=== PATIENT | female | born 1960 | race Caucasian/White ===

== ENCOUNTER → 2018-05-12 19:23 | Outpatient (CLI) | payer MEDICAID, SELFPAY | PROVIDERS: PCP Nurse Practitioner Family; Visit Provider Nurse Practitioner Family | DX: G47.33 Obstructive sleep apnea (adult) (pediatric) (principal) | CPT/HCPCS: 95810 ==

== ENCOUNTER → 2018-09-16 13:49 | Outpatient (CLI) | payer MEDICAID, SELFPAY ==
--- NOTE | 2018-09-16 13:50 | CT_ITS ---
CT sinus wo con CLINICAL INDICATION: Sinusitis, deviated septum ITS.REASON: sinusitis ORDERING PHYSICIAN: Cleve Kimble MD PATIENT AGE: 58 years COMPARISON: None TECHNIQUE:Axial images obtained with sagittal and coronal reformats. All CT scans at the facility use one or more dose reduction, viz: automated exposure control, ma/kV adjustment per patient size (including targeted exams where dose is matched to indication, i.e. head), or iterative reconstruction technique. FINDINGS: Frontal sinuses are unremarkable. There is opacification of a mid ethmoid air cell on the right with the remaining ethmoid sinuses have an unremarkable appearance. The right maxillary and sphenoid sinuses also have an unremarkable appearance. The ostiomeatal complexes are patent. There is mild mucosal thickening along the floor of the left maxillary sinus. No sinus air-fluid level. There is mild rightward nasal septal deviation. The mastoid sinuses are well pneumatized with no fluid collection. The middle ears are aerated. The orbits have an unremarkable appearance. TMJs are unremarkable. IMPRESSION: 1. Mild right ethmoid and left maxillary sinus disease. 2. Mild rightward nasal septal deviation
== END ==
PROVIDERS: PCP Nurse Practitioner Family; Visit Provider Otolaryngology
DX: J32.0 Chronic maxillary sinusitis (principal); J32.2 Chronic ethmoidal sinusitis; J34.2 Deviated nasal septum
CPT/HCPCS: 70486

== ENCOUNTER → 2019-03-23 14:35 | Outpatient (CLI) | payer MEDICAID, SELFPAY ==
[2019-03-23 15:14] LABS: Basophils % 0.6 % (0.1-2.0); Eosinophils # 0.1 K/mm3 (0.0-0.4); Eosinophils % 1.8 % (0.1-12.0); Hematocrit 43.5 % (37.0-47.0); Hemoglobin 14.3 g/dL (12.2-16.2); Lymphocytes # 1.3 K/mm3 (0.7-4.5); Lymphocytes % 20.4 % (10-50); Mean Corpuscular HGB Conc 32.8 g/dL (31.8-35.4); Mean Corpuscular Hemoglobin 28.7 pg (27.0-31.2); Mean Corpuscular Volume 87.4 fl (81-99); Mean Platelet Volume 9.2 fl (7.4-10.4); Monocytes # 0.3 K/mm3 (0.1-1.0); Monocytes % 5.1 % (1.7-9.3); Neutrophils # 4.6 K/mm3 (1.8-7.8); Neutrophils % 72.1 % (37.0-80.0); Platelet Count 209 K/mm3 (142-424); Red Blood Count 4.98 M/mm3 (4.20-5.40); Red Cell Distribution Width 13.6 % (11.5-17.5); White Blood Count 6.4 K/mm3 (4.8-10.8)
[2019-03-23 16:35] LABS: Alanine Aminotransferase 41 U/L (12-78); Albumin Level 4.2 gm/dL (3.4-5.0); Albumin/Globulin Ratio 1.1 (1.1-1.8); Alkaline Phosphatase 98 U/L (46-116); Aspartate Amino Transferase 32 U/L (15-37); Bilirubin,Total 0.4 mg/dL (0.2-1.0); Blood Urea Nitrogen 16 mg/dL (7-18); Calcium 9.8 mg/dL (8.5-10.1); Carbon Dioxide 27 mmol/L (21.0-32.0); Chloride 98 mmol/L (98-107); Chol/HDL Ratio 3.9 (1-3.5); Cholesterol 210 mg/dL (140-200); Creatinine,Serum 0.89 mg/dL (0.55-1.02); Estimated Glomerular Filt Rate 65 ml/min (>60); GFR (African American) 79 ML/MIN (>60); Globulin 3.7 gm/dl (1.3-3.2); Glucose 255 mg/dL (74-106); HDL Cholesterol 54 mg/dL (29-89); LDL Cholesterol 108 mg/dL (0-130); Sodium 138 mmol/L (136-145); Thyroid Stimulating Hormone 5.08 uIU/ml (0.358-3.740); Total Protein,Serum 7.9 gm/dL (6.4-8.2); Triglycerides 241 mg/dL (30-200); VLDL Cholesterol 48 mg/dL (0-40)
[2019-03-24 15:38] LABS: Hemoglobin A1C 7.5 % (0.0-7.0)
== END ==
PROVIDERS: Visit Provider Nurse Practitioner Family
DX: E11.9 Type 2 diabetes mellitus without complications (principal); E03.9 Hypothyroidism, unspecified; I49.9 Cardiac arrhythmia, unspecified; Z79.84 Long term (current) use of oral hypoglycemic drugs
CPT/HCPCS: 36415; 80053; 80061; 83036; 84439; 84443; 85025

== ENCOUNTER → 2020-10-02 14:12 | Outpatient (CLI) | payer OTHER, SELFPAY ==
--- NOTE | 2020-10-02 14:17 | XR_ITS ---
PROCEDURE: XR FOOT WT BEARING RT 3V CLINICAL INDICATION: pain COMPARISON: No exams were available for comparison FINDINGS: No fracture or dislocation. No lytic or blastic change. There is normal mineralization. The joint spaces are well-preserved. No significant degenerative/arthritic changes. No erosive changes evident. Small calcaneal spur and Achilles tendon enthesopathy is noted. Other findings:None. IMPRESSION: No acute findings. Dictated by: Charlene Schreiber 10/02/2020 15:42 Charlene Schreiber in [facility] 10/02/2020 15:42
--- NOTE | 2020-10-02 14:17 | XR_ITS ---
PROCEDURE: XR FOOT WT BEARING LT 3V CLINICAL INDICATION: pain COMPARISON: No exams were available for comparison FINDINGS: No fracture or dislocation. No lytic or blastic change. There is normal mineralization. The joint spaces are well-preserved. No significant degenerative/arthritic changes. No erosive changes evident. Other findings:Small calcaneal spur and Achilles tendon enthesopathy is noted. IMPRESSION: No acute findings. Dictated by: Charlene Schreiber 10/03/2020 12:39 Charlene Schreiber in [facility] 10/03/2020 12:39
== END ==
PROVIDERS: PCP Nurse Practitioner Family; Visit Provider Nurse Practitioner Family
DX: R06.00 Dyspnea, unspecified (principal); R00.2 Palpitations; R07.89 Other chest pain; E78.5 Hyperlipidemia, unspecified; I10 Essential (primary) hypertension; M79.672 Pain in left foot; M79.671 Pain in right foot
CPT/HCPCS: 73630; 93270

== ENCOUNTER → 2020-10-11 06:08 | Outpatient (CLI) | payer OTHER, SELFPAY ==
--- NOTE | 2020-10-11 06:09 | NM_ITS ---
APPROVED REPORT Exam: Nuclear Stress Test Indication: Chest pain, SOB, Fatigue, HTN, Obesity, DM, High cholesterol, Family history Patient Location: Outpatient Stress Tech: Milady Dane [place] Tech:Samara Flaherty, ARRT, RT (R)(N) Ht: 5 ft 2 in Wt: 261 lbs Bra Size: 44D HR: 71 bpm BP: 125/43 mmHg BSA: 2.14 m2 BMI: 47.7 History: Chest pain, SOB, Fatigue, HTN, Obesity, DM, High cholesterol, Family history Procedure: Patient received a 0.4 mg of intravenous Lexiscan, resting heart rate 71 bpm, resting blood pressure 125/43 mmHg, with Lexiscan maximum heart rate achived was 101 bpm which is % of the maximum predicted heart rate and blood pressure was 150/77 mmHg. With Lexiscan, patient denied any complaint of chest pain. Cardiac Stress and Resting SPECT Images: Cardiac Stress and Resting SPECT images were obtained using technetium 99m Myoview 32.3 mCi stress and 10.35 mCi at rest. Small decrease activity in the anterior lateral region may be due to breast attenuation. No reversible defects. Normal EF 62%. No wall motion abnormality. Conclusion: Small decrease activity in the anterior lateral region may be due to breast attenuation. No reversible defects. Normal EF 62%. No wall motion abnormality. Electronically signed by : Luiz Peres MD 10/11/2020 14:39:20
--- NOTE | 2020-10-11 06:09 | CA_ITS ---
APPROVED REPORT Exam: Pharmacologic Technologist: Milady Vela Ht: 5 ft 2 in Wt: 271 lbs BSA: 2.17 m2 HR: 71 bpm BP: 125/43 mmHg Indications: Chest pain, Shortness of Breath Medical History Medications: Omeprazole,,,,, Metoprolol,,,,, Simvastatin,,,,, Metformin,,,,, Vitamin B12,,,,, Vitamin D3,,,,, HCTZ,,,,, Naproxen,,,,, Albuterol,,,,, LoraTidine,,,,, Fluoxetine,,,,, Cyclobenzaprine,,,,, Stress Test Details Test: LEXISCAN HR Resting HR: 73 bpm Max Heart Rate (APMHR): 160.943023 bpm Max HR Achieved: 101 bpm Target HR (85% APMHR): 136.757258 bpm % of APMHR: 63.13 Recovery HR: 91 bpm BP Resting BP: 125.0/43.0 mmHg Max BP: 150.0/77.0 mmHg Recovery BP: 131.0/68.0 mmHg ECG Resting ECG: Normal sinus rhythm, early repolarization changes, low voltage QRS Clinical Exercise duration: 04:01 min Highest Stage Achieved: Exercise capacity: 1.0 METs Stress ECG Conclusion Symptoms: Shortness of air, malaise, stomach cramps. No chest pain Arrhythmias/Ectopy: Rare PAC ST-T Changes: No significant changes. Conclusion: Unremarkable Lexiscan stress. Myoview images reported separately. Electronically signed by : oCnner Kyle, 10/13/2020 08:34:24
--- NOTE | 2020-10-11 08:05 | HMH.ITSHM ---
Current Home Medications as stated by this patient Melva Camara or maintenance representative. []TRAZODONE SIMVASTATIN POTASSIUM OMEPRAZOLE NAPROXEN METOPROLOL METFORMIN LORATADINE LEVOTHYROXINE HCTZ FLUTICASONE FLUOXETINE EMPAGLIFLOZIN DOCUSATE CYCLOBENZAPRINE VITMAIN B12 VITMAIN D3 ALBUTEROL
== END ==
PROVIDERS: PCP Nurse Practitioner Family; Visit Provider Nurse Practitioner Family
DX: R07.89 Other chest pain (principal); R06.00 Dyspnea, unspecified; R00.2 Palpitations; E78.5 Hyperlipidemia, unspecified; I10 Essential (primary) hypertension
CPT/HCPCS: 78452; 93017; 93306; A9502; J2785; Q9957

== ENCOUNTER → 2020-11-13 11:20 | Outpatient (CLI) | payer OTHER, SELFPAY ==
[2020-11-13 12:02] LABS: Basophils % 0.5 % (0.1-2.0); Eosinophils # 0.3 K/mm3 (0.0-0.4); Eosinophils % 4.1 % (0.1-12.0); Hemoglobin 12.8 g/dL (12.2-16.2); Lymphocytes # 2.2 K/mm3 (0.7-4.5); Lymphocytes % 30.2 % (10-50); Mean Corpuscular HGB Conc 32.9 g/dL (31.8-35.4); Mean Corpuscular Hemoglobin 27.9 pg (27.0-31.2); Mean Corpuscular Volume 84.7 fl (81-99); Mean Platelet Volume 8.9 fl (7.4-10.4); Monocytes # 0.3 K/mm3 (0.1-1.0); Monocytes % 4.1 % (1.7-9.3); Neutrophils # 4.5 K/mm3 (1.8-7.8); Neutrophils % 61.1 % (37.0-80.0); Platelet Count 266 K/mm3 (142-424); Red Cell Distribution Width 13.8 % (11.5-17.5); White Blood Count 7.3 K/mm3 (4.8-10.8)
[2020-11-13 13:14] LABS: Chloride 97 mmol/L (98-107)
[2020-11-13 13:15] LABS: Sodium 137 mmol/L (136-145)
[2020-11-13 13:16] LABS: Coronavirus 19 IgG Antibody Positive (Negative); Coronavirus 19 IgM Antibody Negative (Negative)
[2020-11-13 13:17] LABS: Blood Urea Nitrogen 15 mg/dl (7-17); Estimated Glomerular Filt Rate 73 ml/min (>60); GFR (African American) 89 ML/MIN (>60)
[2020-11-13 13:18] LABS: Calcium 10.2 mg/dl (8.4-10.2); Carbon Dioxide 29 mmol/L (22.0-30.0); Glucose 165 mg/dl (74-100)
== END ==
PROVIDERS: Visit Provider Physician Assistant
DX: Z01.812 Encounter for preprocedural laboratory examination (principal); Z20.822 Contact with and (suspected) exposure to COVID-19; R06.00 Dyspnea, unspecified; I20.9 Angina pectoris, unspecified; R94.30 Abnormal result of cardiovascular function study, unspecified; I10 Essential (primary) hypertension; E78.2 Mixed hyperlipidemia
CPT/HCPCS: 36415; 80048; 85025; 86328

== ENCOUNTER 2020-11-15 08:02 | Day surgery (SDC) | payer OTHER, SELFPAY ==
[2020-11-15] VITALS (12 sets, daily range): BP systolic 90–130; BP diastolic 43–87; PULSE 62–88; RESP 18–20; TEMP 36.7; O2SAT 95–100; BMI 49.9
--- NOTE | 2020-11-15 | IR_ITS ---
APPROVED REPORT Patient Location: Outpatient School Psychometrist: SOURAV Paige RT (R) PROCEDURES Left heart catheterization Left ventriculogram Selective coronary angiogram Drug-eluting stent deployment to the ostial proximal left main artery FFR to the LAD Intravascular ultrasound to the LAD Intravascular ultrasound of left main artery INDICATION Coronary artery disease, High risk abnormal Myoview, Low syntax score , Left main stenting, Angiographically indeterminate LAD disease Informed consent was obtained prior to the procedure. COMPLICATIONS NONE Estimated Blood Loss: LESS THAN 10 ML TECHNIQUE One percent lidocaine used to anesthetize the right anterior aspect of the wrist. The right radial artery was accessed via the Seldinger technique. A 6 [place] sheath was placed in the right radial artery. 2.5 mg of verapamil, 800 mcg of nitroglycerin, 1mg Lidocaine and 5000 U Heparin were given through the arterial sheath. The trap catheter was also used to perform left heart catheterization, left ventriculogram and selective coronary angiogram. At the end of the diagnostic procedure therapeutic heparin was administered giving a therapeutic ACT. Patient is morbidly obese with normal LV function and diabetic. Patient has a low syntax score with an isolated ostial left main stenosis in which data demonstrates these patients do very well with drug-eluting stenting and have significantly lower stroke rate with equal life expectancy to CABG. Based on her morbid obesity it was felt a left main stenting would be in this patient's best interest and should result with superior outcomes as described with lower stroke rate. Given the scenario 4 mm x 8 mm resolute [place] stent was initially deployed at 20 sujatha. A 5 mm x 8 mm balloon was then placed back into the ostial segment and deployed at 20 sujatha. At this point a nevus FFR catheter was advanced into the mid LAD to better evaluate the proximal LAD stenosis to make sure that large 4 mm vessel did not require stenting due to hemodynamic significant lesion. Adenosine was infused and the FFR index dropped to 0.83. At this point an [place] eye intravascular ultrasound probe was advanced to evaluate both the LAD and left main artery. The MLA in the proximal LAD measured 8.3 mm??? and it also demonstrated the left main artery had slight undersizing of the left main stent therefore a 5 mm x 12 mm resolute [place] stent was placed in the ostial proximal segment of the left main artery and deployed at 24 sujatha. This provided double stenting of the ostium for increased radial strength and also provided much better apposition of the stent to the left main artery. Repeat angiography demonstrated suspected spasm of the mid to distal LAD therefore 2 aliquots of 800 mcg of nitroglycerin were administered directly into the left main artery with subsequent angiography demonstrated EWDIGE III flow down the LAD with no angiographic defect from the FFR or IVUS catheters. After achieving excellent angiographic results the apparatus was removed the sheath was removed and hemostasis was achieved using TR banding patient was transferred to the postop holding in stable condition ANGIOGRAPHIC RESULTS The left main artery Has an ostial 70 to 80% stenosis The left anterior descending artery Has a proximal eccentric 30% stenosis with a mid vessel 30% stenosis along a tortuous bend The circumflex artery Nondominant and normal The right coronary artery Is a large dominant vessel with proximal and mid vessel eccentric 30% stenosis The TRUJILLO ventriculogram reveals Normal 65% The left ventricular end-diastolic pressure 20-25 mmHg IMPRESSION Severe ostial left main disease accompanied by low syntax score
[2020-11-15 13:45] LABS: POC Glucose,Bedside 153 (70-110)
[2020-11-15 14:27] LABS: CATHL Activated Clotting Time 308 SEC (74-125)
--- NOTE | 2020-11-15 14:50 | HMH.PHACLD ---
Melva Camara has received discharge medication counseling on the following medications: ASPIRIN 81MG BRILINTA 90MG ATORVASTATIN 40MG LASIX 20MG RAMIPRIL 10MG CARVEDILOL 12.5MG PATIENT IS TO HOLD METFORMIN FOR 2 DAYS AND STOP IMDUR, ZOCOR, NAPROXEN, AND METOPROLOL. PATIENT AND PATIENT'S VERBALIZED UNDERSTANDING AND HAD NO QUESTIONS AT THIS TIME. -CARLO DELUCA, JOSELINED
== END 2020-11-15 14:47 | disposition home or self-care (01) ==
LOC: CATHLAB 08:03
PROVIDERS: PCP Nurse Practitioner Family; Visit Provider Internal Medicine
DX: I25.118 Atherosclerotic heart disease of native coronary artery with other forms of angina pectoris (principal); R94.39 Abnormal result of other cardiovascular function study; Z82.49 Family history of ischemic heart disease and other diseases of the circulatory system; Z79.84 Long term (current) use of oral hypoglycemic drugs; E11.9 Type 2 diabetes mellitus without complications; I10 Essential (primary) hypertension; E78.5 Hyperlipidemia, unspecified; Z79.899 Other long term (current) drug therapy; E66.01 Morbid (severe) obesity due to excess calories; Z68.42 Body mass index [BMI] 45.0-49.9, adult
CPT/HCPCS: 82962; 85347; 92978; 92979; 93458; 93571; 99152; 99153; C1725; C1760; C1769; C1876; J0153; J1644; J2405; Q9967

== ENCOUNTER → 2021-01-01 11:42 | Outpatient (CLI) | payer OTHER, SELFPAY ==
[2021-01-01 12:50] LABS: Chloride 94 mmol/L (98-107); Sodium 137 mmol/L (136-145)
[2021-01-01 12:53] LABS: Blood Urea Nitrogen 17 mg/dl (7-17); Calcium 10.3 mg/dl (8.4-10.2); Carbon Dioxide 29 mmol/L (22.0-30.0); Estimated Glomerular Filt Rate 57 ml/min (>60); GFR (African American) 68 ML/MIN (>60); Glucose 172 mg/dl (74-100)
== END ==
PROVIDERS: Visit Provider Physician Assistant
DX: R42 Dizziness and giddiness (principal); I25.10 Atherosclerotic heart disease of native coronary artery without angina pectoris; I51.89 Other ill-defined heart diseases; E78.2 Mixed hyperlipidemia; I10 Essential (primary) hypertension
CPT/HCPCS: 36415; 80048

== ENCOUNTER → 2021-05-22 12:22 | Outpatient (CLI) | payer OTHER, SELFPAY ==
--- NOTE | 2021-05-22 | US_ITS ---
APPROVED REPORT Exam Type: Ankle to Brachial Index Coffee Sommelier: RT Shun(R) Indications Claudication: Bilaterally Rest Pain: Bilaterally CAD bilateral claudication Risk Factors Hypertension Diabetes Pressures/Indices Right Indices Left Indices Brachial 153.00 mmHg Brachial 145.00 mmHg Low Thigh 168.00 mmHg 1.10 Low Thigh 178.00 mmHg 1.16 Calf 172.00 mmHg 1.12 Calf 174.00 mmHg 1.14 Ankle(PT) 168.00 mmHg 1.10 Ankle(PT) 168.00 mmHg 1.10 Ankle(DP) 146.00 mmHg 0.95 Ankle(DP) 169.00 mmHg 1.10 Digit 119.00 mmHg 0.78 Digit 114.00 mmHg 0.75 Findings RT AI=1.10 LT AI=1.10 RT TBI=0.78 LT TBI=0.75 Normal pulses Normal waveforms Conclusion RT AI=1.10 LT AI=1.10 RT TBI=0.78 LT TBI=0.75 Normal pulses Normal waveforms Normal appearing resting noninvasive lower extremity arterial study. Electronically signed by : Luiz Peres MD 05/23/2021 19:37:38
== END ==
PROVIDERS: PCP Nurse Practitioner Family; Visit Provider Nurse Practitioner Family
DX: R29.898 Other symptoms and signs involving the musculoskeletal system (principal); L65.9 Nonscarring hair loss, unspecified
CPT/HCPCS: 93923

== ENCOUNTER → 2021-07-11 06:21 | Outpatient (CLI) | payer OTHER, SELFPAY ==
--- NOTE | 2021-07-11 06:23 | CA_ITS ---
APPROVED REPORT Exam: Pharmacologic Technologist: Larissa Zapata, Ht: 5 ft 2 in Wt: 254 lbs BSA: 2.12 m2 HR: 69 bpm BP: 163/77 mmHg Medical History Medications: Omeprazole,,,,, Levothyroxine,,,,, Aspirin,,,,, Flexeril,,,,, Lasix,,,,, Ramipril,,,,, Lipitor,,,,, Coreg,,,,, Albuterol,,,,, MeLOXICAM,,,,, ZYRTEC,,,,, Plavix,,,,, Stress Test Details Test: LEXISCAN HR Resting HR: 67 bpm Max Heart Rate (APMHR): 159 bpm Max HR Achieved: 96 bpm Target HR (85% APMHR): 135 bpm % of APMHR: 60 Recovery HR: 84 bpm BP Resting BP: 163/77 mmHg Max BP: 176/87 mmHg Recovery BP: 166.0/83.0 mmHg ECG Resting ECG: NSR, low voltage QRS, rightward axis Clinical Exercise duration: 04:00 min Highest Stage Achieved: Exercise capacity: 1.0 METs Stress ECG Conclusion Symptoms: Mild SOA, malaise, discomfort in shoulders and posterior neck. Arrhythmias/Ectopy: None. ST-T Changes: No significant changes. Conclusion: Unremarkable Lexiscan stress. Myoview images reported separately. Test Summary REST . . . . . . . Resting REST 04:35 . . 67 . 163/ 77 . . Stage 1 01:00 . . 94 . . . . Stage 2 01:00 . . 92 . 166/ 84 . . Stage 3 01:00 . . 90 . 176/ 87 . . Stage 4 01:00 . . 86 . 163/ 83 . Stop exercise at 04:00 RECOVERY 01:00 . . 84 . 162/ 79 . . RECOVERY 02:00 . . 84 . 162/ 79 . . RECOVERY 03:00 . . 82 . 166/ 83 . . RECOVERY 03:18 . . 81 . 166/ 83 . . Electronically signed by : Silvino Parkinson MD 07/11/2021 11:29:24
--- NOTE | 2021-07-11 06:23 | NM_ITS ---
APPROVED REPORT Exam: Nuclear Stress Test Indication: CAD, HTN, DM, HYPERLIPIDEMIA, FM HX, C.P., SOB, FATIGUE, ABN EKG Patient Location: Outpatient Stress Tech: Larissa Zapata [place] Tech:Caroline Alvarez, ARRT RT (R)(N)(M) Ht: 5 ft 2 in Wt: 254 lbs Bra Size: DD HR: 67 bpm BP: 163/77 mmHg BSA: 2.12 m2 BMI: 46.4 History: CAD, HTN, DM, HYPERLIPIDEMIA, FM HX, C.P., SOB, FATIGUE, ABN EKG Procedure: Patient received a 0.4 mg of intravenous Lexiscan, resting heart rate 67 bpm, resting blood pressure 163/77 mmHg, with Lexiscan maximum heart rate achived was 94 bpm which is Less than 85 % of the maximum predicted heart rate and blood pressure was 166/84 mmHg. With Lexiscan, patient denied any complaint of chest pain. Electrocardiogram Resting electrocardiogram shows sinus rhythm, with Lexiscan there is less than 1.[address] segment depression noted from the baseline EKG. The EKG portion of the Lexiscan is nondiagnostic. Cardiac Stress and Resting SPECT Images: Cardiac Stress and Resting SPECT images were obtained using technetium 99m Myoview 31.4 mCi stress and 10.56 mCi at rest. Gated SPECT for analysis of segmental wall motion and calculation of the ejection fraction also done. Cardiac stress and respiratory show mild fixed defect in the anterior wall with normal contractility gated SPECT is likely secondary to soft tissue attenuation, no reversible ischemia seen, computer derived ejection fraction is 57% with no regional wall motion abnormality, right ventricle is normal size and contractility. However there is transient ischemic dilatation of the left ventricle seen, raising the concerns of presence of balanced ischemia. Conclusion: 1. The EKG portion of the Lexiscan is nondiagnostic. 2. No scintigraphic evidence of reversible ischemia seen, computer derived ejection fraction is 57% with no regional wall motion abnormality, right ventricle is normal size and contractility, there is transient ischemic dilatation of the left ventricle seen, raising the concerns for presence of balanced ischemia, other causes for transient ischemic dilatation include microvascular disease, diabetes, elevated left ventricular end-diastolic pressure and hypertensive heart disease. Clinical correlation is recommended. 3. Abnormal Lexiscan Myoview study. Electronically signed by : Silvino Parkinson MD 07/11/2021 11:37:04
== END ==
PROVIDERS: PCP Nurse Practitioner Family; Visit Provider Urology
DX: R06.00 Dyspnea, unspecified (principal); I25.118 Atherosclerotic heart disease of native coronary artery with other forms of angina pectoris; I20.9 Angina pectoris, unspecified; I10 Essential (primary) hypertension; R94.31 Abnormal electrocardiogram [ECG] [EKG]; E11.9 Type 2 diabetes mellitus without complications; E78.2 Mixed hyperlipidemia; E66.01 Morbid (severe) obesity due to excess calories; Z68.42 Body mass index [BMI] 45.0-49.9, adult; Z79.84 Long term (current) use of oral hypoglycemic drugs
CPT/HCPCS: 78452; 93017; A9502; J2785

== ENCOUNTER → 2021-08-03 11:54 | Outpatient (CLI) | payer OTHER, SELFPAY ==
[2021-08-03 12:53] LABS: Basophils # 0.1 K/mm3 (0-0.2); Basophils % 0.7 % (0.1-2.0); Eosinophils # 0.3 K/mm3 (0.0-0.4); Eosinophils % 4.8 % (0.1-12.0); Hematocrit 39.3 % (37.0-47.0); Hemoglobin 13.1 g/dL (12.2-16.2); Lymphocytes # 2.1 K/mm3 (0.7-4.5); Lymphocytes % 29.9 % (10-50); Mean Corpuscular HGB Conc 33.4 g/dL (31.8-35.4); Mean Corpuscular Hemoglobin 28.4 pg (27.0-31.2); Mean Corpuscular Volume 85.1 fl (81-99); Mean Platelet Volume 9.3 fl (7.4-10.4); Monocytes # 0.3 K/mm3 (0.1-1.0); Monocytes % 4.7 % (1.7-9.3); Neutrophils # 4.3 K/mm3 (1.8-7.8); Neutrophils % 59.9 % (37.0-80.0); Platelet Count 242 K/mm3 (142-424); Red Blood Count 4.61 M/mm3 (4.20-5.40); Red Cell Distribution Width 15.5 % (11.5-17.5); White Blood Count 7.1 K/mm3 (4.8-10.8)
[2021-08-03 13:56] LABS: Chloride 100 mmol/L (98-107); Potassium 4.4 mmoL/L (3.5-5.1); Sodium 138 mmol/L (136-145)
[2021-08-03 13:59] LABS: Anion Gap 16.4 mEq/L (5-15); Blood Urea Nitrogen 17 mg/dl (7-17); Carbon Dioxide 26 mmol/L (22.0-30.0); Estimated Glomerular Filt Rate 73 ml/min (>60); GFR (African American) 88 ML/MIN (>60); Glucose 157 mg/dl (74-100)
== END ==
PROVIDERS: Visit Provider Physician Assistant
DX: Z01.812 Encounter for preprocedural laboratory examination (principal); Z11.52 Encounter for screening for COVID-19; R06.00 Dyspnea, unspecified; I20.8 Other forms of angina pectoris; I25.118 Atherosclerotic heart disease of native coronary artery with other forms of angina pectoris; I10 Essential (primary) hypertension; E11.9 Type 2 diabetes mellitus without complications; E78.2 Mixed hyperlipidemia; R94.31 Abnormal electrocardiogram [ECG] [EKG]; R94.39 Abnormal result of other cardiovascular function study; E66.01 Morbid (severe) obesity due to excess calories; Z68.42 Body mass index [BMI] 45.0-49.9, adult; Z79.84 Long term (current) use of oral hypoglycemic drugs
CPT/HCPCS: 36415; 80048; 85025; C9803; U0003; U0005

== ENCOUNTER 2021-08-06 08:07 | Day surgery (SDC) | payer OTHER, SELFPAY ==
[2021-08-06] VITALS (13 sets, daily range): BP systolic 102–146; BP diastolic 62–87; PULSE 76–92; RESP 13–19; TEMP 36.9; O2SAT 90–94; BMI 45.8
--- NOTE | 2021-08-06 07:07 | IR_ITS ---
APPROVED REPORT Patient Location: Outpatient Financial Analysis Manager: SOURAV Paige RT (R) PROCEDURES Left heart catheterization Left ventriculogram Selective coronary angiogram INDICATION History of unprotected left main artery stenting, Established coronary artery disease, Abnormal stress test, Worsening angina pectoris Informed consent was obtained prior to the procedure. COMPLICATIONS NONE Estimated Blood Loss: LESS THAN 10 ML TECHNIQUE One percent lidocaine used to anesthetize the right anterior aspect of the wrist. The right radial artery was accessed via the Seldinger technique. A 6 [place] sheath was placed in the right radial artery. 2.5 mg of verapamil, 800 mcg of nitroglycerin, 1mg Lidocaine and 5000 U Heparin were given through the arterial sheath. The [place] catheter was also used to perform left heart catheterization, left ventriculogram and selective coronary angiogram. At the end of the procedure the sheath was removed good hemostasis was achieved using Traclet band, patient was transferred to the postop holding area in stable condition. ANGIOGRAPHIC RESULTS The left main artery Has a stent in the ostial segment which extends throughout the majority of the vessel. The stent is widely patent free of in-stent restenosis with excellent proximal distal transitioning. The left anterior descending artery Is widely patent has minimal proximal 20% tandem eccentric stenosis The circumflex artery Nondominant with mild luminal irregularities The right coronary artery Large dominant with a proximal eccentric 20% stenosis mild 10% luminal irregularities in the large posterior descending artery The TRUJILLO ventriculogram reveals Normal 65% The left ventricular end-diastolic pressure 20-25 mmHg IMPRESSION Widely patent ostial proximal left main stent as described above Mild nonflow limiting coronary disease as described above Normal ejection fraction Moderately elevated LVEDP consistent with diastolic dysfunction which is the likely etiology for the transient ischemic dilatation as reported on stress test and associated angina pectoris PLAN 1. Treat diastolic dysfunction which is the likely etiology for the angina 2. Medical management 3. Risk factor modification Electronically signed by : Conner Kyle MD 08/06/2021 13:59:54
== END 2021-08-06 14:19 | disposition home or self-care (01) ==
LOC: CATHLAB 08:08
PROVIDERS: PCP Nurse Practitioner Family; Visit Provider Internal Medicine
DX: I25.118 Atherosclerotic heart disease of native coronary artery with other forms of angina pectoris (principal); E11.9 Type 2 diabetes mellitus without complications; E66.01 Morbid (severe) obesity due to excess calories; E78.2 Mixed hyperlipidemia; I10 Essential (primary) hypertension; R94.31 Abnormal electrocardiogram [ECG] [EKG]; R94.39 Abnormal result of other cardiovascular function study; Z68.42 Body mass index [BMI] 45.0-49.9, adult; Z79.01 Long term (current) use of anticoagulants; E03.9 Hypothyroidism, unspecified; Z79.84 Long term (current) use of oral hypoglycemic drugs
CPT/HCPCS: 93458; 99152; C1725; C1760; C1769; J1644; Q9967

== ENCOUNTER → 2022-04-10 12:27 | Outpatient (CLI) | payer OTHER, SELFPAY ==
[2022-04-10 15:20] LABS: Hemoglobin A1C 6.5 % (4.0-6.0)
[2022-04-10 16:58] LABS: Chloride 95 mmol/L (98-107); Potassium 3.4 mmoL/L (3.5-5.1); Sodium 136 mmol/L (136-145)
[2022-04-10 17:00] LABS: Blood Urea Nitrogen 9 mg/dl (7-17); Estimated Glomerular Filt Rate 85 ml/min (>60); GFR (African American) 103 ML/MIN (>60)
[2022-04-10 17:01] LABS: Alanine Aminotransferase 16 U/L (12-78); Albumin Level 4.3 g/dl (3.5-5.0); Albumin/Globulin Ratio 1.6 (1.1-1.8); Alkaline Phosphatase 89 U/L (38-126); Anion Gap 11.4 mEq/L (5-15); Aspartate Amino Transferase 23 U/L (14-36); Calcium 9.5 mg/dl (8.4-10.2); Carbon Dioxide 33 mmol/L (22.0-30.0); Globulin 2.7 g/dL (1.3-3.2); Glucose 200 mg/dl (74-100)
[2022-04-10 17:23] LABS: Bilirubin,Total 0.1 mg/dl (0.2-1.3)
[2022-04-10 17:28] LABS: Thyroid Stimulating Hormone 2.67 uIU/mL (0.465-4.68)
== END ==
PROVIDERS: PCP Nurse Practitioner Family; Visit Provider Nurse Practitioner Family
DX: E03.9 Hypothyroidism, unspecified (principal); E11.9 Type 2 diabetes mellitus without complications; Z79.84 Long term (current) use of oral hypoglycemic drugs
CPT/HCPCS: 36415; 80053; 83036; 84443

== ENCOUNTER → 2022-04-23 12:25 | Outpatient (CLI) | payer OTHER, SELFPAY ==
--- NOTE | 2022-04-23 12:27 | MR_ITS ---
FINAL REPORT CLINICAL HISTORY: MEMORY LOSS. intermittent lightheadedness. blurred vision, dizziness, and weakness. FINDINGS: Multiplanar MR imaging of the brain was performed without contrast. There is mild age-appropriate atrophy. There are scattered foci of increased T2 signal in the cerebral white matter that have a nonspecific appearance but likely represent mild chronic ischemic/gliotic changes. There is no evidence of intracranial hemorrhage or mass. No abnormal ventricular dilatation is identified. No abnormal extra-axial fluid collection is seen. No abnormality is seen on the diffusion weighted images. The posterior fossa and brainstem are unremarkable. Normal major vessel vascular flow voids are seen. IMPRESSION: Age-appropriate atrophy and mild chronic ischemic/gliotic changes. No acute intracranial abnormality. Reviewed, Interpreted and Dictated by Chandra Hair III, MD Transcribed by Jane Giraldo Authenticated and [facility]
== END ==
PROVIDERS: PCP Nurse Practitioner Family; Visit Provider Nurse Practitioner Family
DX: R41.3 Other amnesia (principal)
CPT/HCPCS: 70551

== ENCOUNTER → 2022-07-10 13:28 | Outpatient (CLI) | payer OTHER, SELFPAY ==
--- NOTE | 2022-07-10 13:33 | MR_ITS ---
FINAL REPORT TECHNIQUE: Multiplanar MR without contrast CLINICAL HISTORY: RIGHT SIDED SCIATICA FINDINGS: Sagittal images show normal vertebral height. Alignment is normal. There is fatty endplate signal change in the inferior endplate of L4. A hemangioma is noted within the left L1 vertebral body. L1-2: Unremarkable L2-3: Unremarkable L3-4: A mild annular disc bulge is present with moderate facet arthropathy and ligamentum flavum hypertrophy. There is mild central canal stenosis. L4-5: A moderate annular disc bulge is present with facet arthropathy and mild central canal stenosis. There is mild bilateral neural foraminal narrowing. L5-S1: Unremarkable IMPRESSION: Degenerative change at L3-4 and L4-5 as described with mild central canal stenosis. Reviewed, Interpreted and Dictated by Derek Valenzuela MD Transcribed by Daphne Galaviz Authenticated and [facility]
== END ==
PROVIDERS: PCP Nurse Practitioner Family; Visit Provider Nurse Practitioner Family
DX: M54.31 Sciatica, right side (principal); M54.41 Lumbago with sciatica, right side
CPT/HCPCS: 72148; 76376

== ENCOUNTER → 2022-09-04 12:01 | Outpatient (CLI) | payer OTHER, SELFPAY ==
[2022-09-04 12:47] LABS: Chloride 96 mmol/L (98-107); Potassium 3.2 mmoL/L (3.5-5.1); Sodium 138 mmol/L (136-145)
[2022-09-04 12:49] LABS: Bilirubin,Unconjugated 0.3 mg/dL (0.0-1.1); Blood Urea Nitrogen 16 mg/dl (7-17); Estimated Glomerular Filt Rate 63 ml/min (>60); GFR (African American) 77 ML/MIN (>60)
[2022-09-04 12:50] LABS: Alanine Aminotransferase 21 U/L (12-78); Albumin Level 4.4 g/dl (3.5-5.0); Alkaline Phosphatase 76 U/L (38-126); Anion Gap 14.2 mEq/L (5-15); Aspartate Amino Transferase 25 U/L (14-36); Bilirubin,Direct 0.3 mg/dl (0.0-0.4); Bilirubin,Indirect 0.4 mg/dL (0.0-0.9); Bilirubin,Total 0.7 mg/dl (0.2-1.3); Calcium 9.3 mg/dl (8.4-10.2); Carbon Dioxide 31 mmol/L (22.0-30.0); Chol/HDL Ratio 3.2 (1-3.5); Cholesterol 175 mg/dl (140-200); Glucose 133 mg/dl (74-100); HDL Cholesterol 55 mg/dl (40-60); Total Protein,Serum 7.5 g/dl (6.3-8.2); Triglycerides 184 mg/dl (30-150); VLDL Cholesterol 37 mg/dL (0-40)
[2022-09-04 12:59] LABS: NT Pro Brain Natriuretic Pep. 50.8 pg/mL (0-125)
[2022-09-04 13:01] LABS: Direct LDL Cholesterol 88.59 mg/dL (100-129)
== END ==
PROVIDERS: PCP Nurse Practitioner Family; Visit Provider Physician Assistant
DX: R06.00 Dyspnea, unspecified (principal); Z79.899 Other long term (current) drug therapy; E78.2 Mixed hyperlipidemia
CPT/HCPCS: 36415; 80048; 80061; 80076; 83880

== ENCOUNTER → 2022-09-19 11:55 | Outpatient (CLI) | payer OTHER, SELFPAY ==
[2022-09-19 13:01] LABS: Anion Gap 11.9 mEq/L (5-15); Blood Urea Nitrogen 9 mg/dl (7-17); Calcium 8.8 mg/dl (8.4-10.2); Carbon Dioxide 33 mmol/L (22.0-30.0); Chloride 95 mmol/L (98-107); Estimated Glomerular Filt Rate 85 ml/min (>60); GFR (African American) 103 ML/MIN (>60); Glucose 138 mg/dl (74-100); Sodium 137 mmol/L (136-145)
[2022-09-19 13:03] LABS: Potassium 2.9 mmoL/L (3.5-5.1)
== END ==
PROVIDERS: PCP Nurse Practitioner Family; Visit Provider Internal Medicine
DX: I25.118 Atherosclerotic heart disease of native coronary artery with other forms of angina pectoris (principal)
CPT/HCPCS: 36415; 80048

== ENCOUNTER → 2022-10-02 10:18 | Outpatient (CLI) | payer OTHER, SELFPAY ==
[2022-10-02 12:11] LABS: Anion Gap 12.7 mEq/L (5-15); Blood Urea Nitrogen 9 mg/dl (7-17); Calcium 8.5 mg/dl (8.4-10.2); Carbon Dioxide 32 mmol/L (22.0-30.0); Chloride 96 mmol/L (98-107); Estimated Glomerular Filt Rate 101 ml/min (>60); GFR (African American) 123 ML/MIN (>60); Glucose 184 mg/dl (74-100); Sodium 138 mmol/L (136-145)
[2022-10-02 12:22] LABS: Potassium 2.7 mmoL/L (3.5-5.1)
== END ==
PROVIDERS: PCP Nurse Practitioner Family; Visit Provider Nurse Practitioner Family
DX: E87.5 Hyperkalemia (principal)
CPT/HCPCS: 36415; 80048

== ENCOUNTER → 2022-10-04 09:50 | Outpatient (CLI) | payer OTHER, SELFPAY ==
[2022-10-04 10:27] LABS: Chloride 97 mmol/L (98-107)
[2022-10-04 10:28] LABS: Sodium 140 mmol/L (136-145)
[2022-10-04 10:31] LABS: Anion Gap 11.9 mEq/L (5-15); Blood Urea Nitrogen 10 mg/dl (7-17); Calcium 9.3 mg/dl (8.4-10.2); Carbon Dioxide 34 mmol/L (22.0-30.0); Estimated Glomerular Filt Rate 85 ml/min (>60); GFR (African American) 103 ML/MIN (>60); Glucose 187 mg/dl (74-100)
[2022-10-04 10:42] LABS: Potassium 2.9 mmoL/L (3.5-5.1)
== END ==
PROVIDERS: PCP Nurse Practitioner Family; Visit Provider Nurse Practitioner Family
DX: E87.6 Hypokalemia (principal)
CPT/HCPCS: 36415; 80048

== ENCOUNTER → 2022-10-07 12:02 | Outpatient (CLI) | payer OTHER, SELFPAY ==
[2022-10-07 13:09] LABS: Anion Gap 15.3 mEq/L (5-15); Blood Urea Nitrogen 8 mg/dl (7-17); Calcium 9.3 mg/dl (8.4-10.2); Carbon Dioxide 30 mmol/L (22.0-30.0); Chloride 96 mmol/L (98-107); Estimated Glomerular Filt Rate 101 ml/min (>60); GFR (African American) 123 ML/MIN (>60); Glucose 137 mg/dl (74-100); Potassium 3.3 mmoL/L (3.5-5.1); Sodium 138 mmol/L (136-145)
== END ==
PROVIDERS: PCP Nurse Practitioner Family; Visit Provider Nurse Practitioner
DX: E87.6 Hypokalemia (principal)
CPT/HCPCS: 36415; 80048

== ENCOUNTER 2023-10-27 14:41 | Outpatient (CLI) | payer OTHER, SELFPAY ==
[2023-10-27 15:00] LABS: Basophils # 0.1 K/mm3 (0-0.2); Basophils % 1.1 % (0.1-2.0); Eosinophils # 0.3 K/mm3 (0.0-0.4); Eosinophils % 4.6 % (0.1-12.0); Hematocrit 40.3 % (37.0-47.0); Hemoglobin 13.1 g/dL (12.2-16.2); Lymphocytes # 2.3 K/mm3 (0.7-4.5); Lymphocytes % 32.3 % (10-50); Mean Corpuscular HGB Conc 32.6 g/dL (31.8-35.4); Mean Corpuscular Hemoglobin 25.8 pg (27.0-31.2); Mean Corpuscular Volume 79.2 fl (81-99); Mean Platelet Volume 9.6 fl (7.4-10.4); Monocytes # 0.3 K/mm3 (0.1-1.0); Monocytes % 4.2 % (1.7-9.3); Neutrophils # 4.2 K/mm3 (1.8-7.8); Neutrophils % 57.8 % (37.0-80.0); Platelet Count 236 K/mm3 (142-424); Red Blood Count 5.09 M/mm3 (4.20-5.40); Red Cell Distribution Width 18.2 % (11.5-17.5); White Blood Count 7.2 K/mm3 (4.8-10.8)
[2023-10-27 16:27] LABS: Alanine Aminotransferase 29 U/L (12-78); Albumin Level 4.6 g/dl (3.5-5.0); Alkaline Phosphatase 85 U/L (38-126); Anion Gap 14.2 mEq/L (5-15); Aspartate Amino Transferase 30 U/L (14-36); Bilirubin,Direct 0.3 mg/dl (0.0-0.4); Bilirubin,Indirect 0.3 mg/dL (0.0-0.9); Bilirubin,Total 0.6 mg/dl (0.2-1.3); Bilirubin,Unconjugated 0.3 mg/dL (0.0-1.1); Blood Urea Nitrogen 18 mg/dl (7-17); Calcium 10.3 mg/dl (8.4-10.2); Carbon Dioxide 26 mmol/L (22.0-30.0); Chloride 100 mmol/L (98-107); Chol/HDL Ratio 4.4 (1-3.5); Cholesterol 183 mg/dl (140-200); Estimated Glomerular Filt Rate 50 ml/min (>60); GFR (African American) 61 ML/MIN (>60); Glucose 165 mg/dl (74-100); HDL Cholesterol 42 mg/dl (40-60); Magnesium 1.7 mg/dl (1.6-2.3); Potassium 4.2 mmoL/L (3.5-5.1); Sodium 136 mmol/L (136-145); Total Protein,Serum 7.8 g/dl (6.3-8.2); Triglycerides 184 mg/dl (30-150); VLDL Cholesterol 37 mg/dL (0-40)
[2023-10-27 16:38] LABS: Direct LDL Cholesterol 94.38 mg/dL (100-129)
[2023-10-27 16:43] LABS: Free T4 (Free Thyroxine) 1.11 ng/dl (0.78-2.19)
[2023-10-27 16:58] LABS: Thyroid Stimulating Hormone 2.19 uIU/mL (0.465-4.68)
== END 2023-10-27 23:59 | disposition home or self-care (01) ==
LOC: LAB 14:42
PROVIDERS: PCP Nurse Practitioner; Visit Provider Internal Medicine
DX: I11.9 Hypertensive heart disease without heart failure (principal); I25.118 Atherosclerotic heart disease of native coronary artery with other forms of angina pectoris; E78.2 Mixed hyperlipidemia; R07.89 Other chest pain; R06.00 Dyspnea, unspecified; L81.9 Disorder of pigmentation, unspecified
CPT/HCPCS: 36415; 80048; 80061; 80076; 83735; 84439; 84443; 85025

== ENCOUNTER 2023-11-06 06:24 | Outpatient (CLI) | payer OTHER, SELFPAY ==
--- NOTE | 2023-11-06 06:28 | NM_ITS ---
APPROVED REPORT Exam: Nuclear Stress Test Indication: soa.palpitations..fatigue Patient Location: Outpatient Stress Tech: Larissa Zapata [place] Tech:SOURAV Miramontes RT(R)(N) Ht: 5 ft 2 in Wt: 244 lbs Bra Size: 44d HR: 85 bpm BP: 105/59 mmHg BSA: 2.08 m2 Rhythm: NSR TID: 1.20 BMI: 44.6 History: soa.palpitations..fatigue Procedure: Patient received 0.4 mg of intravenous Lexiscan, resting heart rate 85 bpm, resting blood pressure 105/59 mmHg, with Lexiscan maximum heart rate achieved was 103 bpm which is 85 % of the maximum predicted heart rate and blood pressure was 115/53 mmHg. With Lexiscan, patient denied any complaint of chest pain. Cardiac Stress and Resting SPECT Images: Cardiac Stress and Resting SPECT images were obtained using technetium 99m Myoview 31.9 mCi stress and 10.41 mCi at rest. Resting and stress imaging in supine and prone positions demonstrate no evidence of fixed or reversible perfusion defects. There is borderline increase in transient ischemic dilatation ratio (TID 1.20), suggestive of possible multivessel disease or balanced ischemia. Gated imaging demonstrates normal global and regional LV systolic function. LVEF is calculated at 62%. Conclusion: No evidence of fixed or reversible perfusion defects. There is borderline increase in transient ischemic dilatation ratio (TID 1.20), suggestive of possible multivessel disease or balanced ischemia. Gated imaging demonstrates normal global and regional LV systolic function. LVEF is calculated at 62%. Of note, the patient had previously undergone nuclear stress testing in 2021 similarly showing increase in TID ratio, after which she underwent C showing patent coronary arteries and patent stents, but with evidence of increased LVEDP. Electronically signed by : Alyson Herndon MD 11/09/2023 19:41:12
--- NOTE | 2023-11-06 06:47 | CA_ITS ---
APPROVED REPORT EXAM: Comprehensive 2D, Doppler, and color-flow Echocardiogram Greens Laborer: Christie Estrada RDCS Ht: 5 ft 2 in Wt: 245lbs BSA: 2.08 BP: 110/94 mmHg Indications: SOA,CP,HTN,DM M-Mode Dimensions RVDd 1.14 cm (0.9-2.6) LA Diam 3.05 cm (1.9-4.0) LVDd 5.19 cm (3.5-5.7) LVDs 3.67 cm (3.5-5.7) IVSd 0.91 cm (0.6-1.1) PWd 0.83 cm (0.6-1.1) EF (Teich) 55.80% FS 29.30% EDV (Teich) 128.90 mL ESV (Teich) 57.00 mL LV Diastology E Decel Time 220 (160-240 msec) E/A Ratio 0.8 Mitral Valve MV E Max Alvarez. 56.0 (40-130 cm/s) MV A Velocity 66.0 (40-130 cm/s) E/A Ratio 0.85 MV PHT 64.0 ms Left Ventricle The left ventricle is normal size. The left ventricular systolic function is normal. The left ventricular ejection fraction is within the normal range. There is increased LV wall thickness. There is normal LV segmental wall motion. Transmitral Doppler flow pattern suggests impaired LV relaxation. LVEF is 55%. Right Ventricle The right ventricle is normal size. The right ventricular systolic function is normal. Atria The left atrium size is normal. The right atrium size is normal. There is no Doppler evidence of interatrial shunt. Aortic Valve The aortic valve opens well. There is no aortic valvular stenosis. No aortic regurgitation is present. Mitral Valve The mitral valve is normal in structure. No evidence of mitral valve stenosis. There is no mitral valve regurgitation noted. Tricuspid Valve The tricuspid valve leaflets are thin and pliable. Trace tricuspid regurgitation. There is insufficient TR jet to estimate RVSP. Pulmonic Valve The pulmonary valve is normal in structure. Trace pulmonic regurgitation. Great Vessels The aortic root is normal in size. The ascending aorta is not well-visualized. IVC is normal in size and collapses >50% with inspiration. Pericardium There is no pericardial effusion. Other Information Study Quality: Technically Difficult Conclusion Technically difficult study due to poor acoustic windows. Normal biventricular systolic function. No significant valvular stenosis or regurgitation. Electronically signed by : Alyson Herndon MD 11/10/2023 13:44:30
--- NOTE | 2023-11-06 09:10 | CA_ITS ---
APPROVED REPORT Exam: Pharmacologic Technologist: Larissa Allen, Ht: 5 ft 2 in Wt: 245 lbs BSA: 2.08 m2 HR: 85 bpm BP: 105/59 mmHg Rhythm: NSR Medical History Medications: Omeprazole,,,,, Levothyroxine,,,,, Aspirin,,,,, Metformin,,,,, Carvedilol,,,,, Ramipril,,,,, Albuterol,,,,, MeLOXICAM,,,,, CloPIdogrel,,,,, Fluoxetine,,,,, Nitroglycerin,,,,, SpirOnolactone,,,,, Stress Test Details Test: LEXISCAN Reason for pharmacologic stress test: physical limitation. HR Resting HR: 85 bpm Max Heart Rate (APMHR): 157 bpm Max HR Achieved: 103 bpm Target HR (85% APMHR): 133 bpm % of APMHR: 66 Recovery HR: 98 bpm BP Resting BP: 105.0/59.0 mmHg Max BP: 115.0/53.0 mmHg Recovery BP: 108.0/64.0 mmHg ECG Resting ECG: NSR, rightward axis Stress ECG: No significant ST changes Arrhythmia: None Clinical Exercise duration: 04:04 min Highest Stage Achieved: Exercise capacity: 1.0 METs Stress ECG Conclusion Symptoms: Mild SOA, head discomfort. Mild chest discomfort. Arrhythmias/Ectopy: None. ST-T Changes: No significant ST changes. Conclusion: Unremarkable Lexiscan stress. Myoview images reported separtely. Test Summary REST . . . . . . . Resting REST 03:18 . . 85 . 105/ 59 . . Stage 1 01:00 . . 99 . . . . Stage 2 01:00 . . 100 . . . . Stage 3 01:00 . . 99 . 115/ 53 . . Stage 4 01:00 . . 96 . 110/ 62 . . Stage 4 01:04 . . 97 . 107/ 71 . Stop exercise at 04:04 RECOVERY 01:00 . . 94 . . . . RECOVERY 02:00 . . 96 . 107/ 69 . . RECOVERY 03:00 . . 94 . 108/ 64 . . RECOVERY 03:17 . . 94 . 108/ 64 . . Electronically signed by : Alyson Herndon MD 11/09/2023 19:37:42
[2023-11-06] MEDS: ISOTOPE MYOVIEW (PER STUDY) 1 DOSE IV (10:24)
[2023-11-06] MEDS: SODIUM CHLORIDE 0.9% 10ML SYR (RAD ONLY) 10 ML IV ×2 (10:24)
[2023-11-06] MEDS: REGADENOSON 0.4MG/5ML SYRINGE 0.400000000000000022 MG IV (10:24)
== END 2023-11-06 23:59 | disposition home or self-care (01) ==
LOC: RAD 06:25
PROVIDERS: PCP Family Medicine; Visit Provider Internal Medicine
DX: R06.00 Dyspnea, unspecified (principal); R07.89 Other chest pain; I25.118 Atherosclerotic heart disease of native coronary artery with other forms of angina pectoris; E78.2 Mixed hyperlipidemia; I10 Essential (primary) hypertension; L81.9 Disorder of pigmentation, unspecified
CPT/HCPCS: 78452; 93017; 93018; 93306; A9502; J2785

== ENCOUNTER 2024-02-05 12:39 | Outpatient (CLI) | payer OTHER, SELFPAY ==
--- NOTE | 2024-02-05 12:46 | XR_ITS ---
FINAL REPORT CLINICAL HISTORY: Foot pain COMPARISON: None FINDINGS: LEFT FOOT Three views of the left foot demonstrate no acute fracture or dislocation. The visualized joint spaces are normally aligned. The soft tissues are unremarkable. There is a small plantar calcaneal spur present, along with a small Rosibel deformity. IMPRESSION: No acute bony abnormality, with chronic change as described. Reviewed, Interpreted and Dictated by Carlitos Arroyo MD Transcribed by iLsa Jernigan Authenticated and . [facility]
--- NOTE | 2024-02-05 12:46 | XR_ITS ---
FINAL REPORT CLINICAL HISTORY: Foot pain COMPARISON: None FINDINGS: RIGHT FOOT 3 views of the right foot were obtained. There is no acute fracture or dislocation. Visualized joint spaces are normally aligned. Soft tissues are unremarkable. There is a small plantar calcaneal spur present, as well as a small Rosibel deformity. IMPRESSION: No acute bony abnormality, with chronic degenerative changes as described. Reviewed, Interpreted and Dictated by Carlitos Arroyo MD Transcribed by Lisa Jernigan Authenticated and [facility]
== END 2024-02-05 23:59 | disposition home or self-care (01) ==
LOC: RAD 12:41
PROVIDERS: PCP Family Medicine; Visit Provider Podiatrist
DX: M79.671 Pain in right foot (principal); M79.672 Pain in left foot
CPT/HCPCS: 73630